=== PATIENT | male | born 1995 | race Caucasian/White ===

== ENCOUNTER 2023-02-26 07:28 | Emergency (ER) | payer SELFPAY ==
[~2023-02-26] VITALS: Ht 193 cm; Wt 108.9 kg
[2023-02-26 07:28] VITALS: BP 156/94; PULSE 83; RESP 18; TEMP 98.3; O2SAT 97
[2023-02-26] MEDS ORDERED: TORADOL ONE (07:37)
[2023-02-26] MEDS ORDERED: TORADOL IM ONE (08:00)
[2023-02-26 08:10] VITALS: BP 133/67; PULSE 69; RESP 18; TEMP 98.3; O2SAT 97
== END 2023-02-26 08:15 | disposition home or self-care (01) ==
LOC: ER 07:28
DX: M94.0 Chondrocostal junction syndrome [Tietze] (principal); R07.89 Other chest pain; F12.90 Cannabis use, unspecified, uncomplicated
CPT/HCPCS: 99283; 71045; 96372; 93005; J1885

== ENCOUNTER 2025-04-10 10:44 | Emergency (ER) | payer SELFPAY ==
[~2025-04-10] VITALS: Ht 193 cm; Wt 104.3 kg
[2025-04-10 11:00] VITALS: BP 143/87; PULSE 60; RESP 16; TEMP 98; O2SAT 98
[2025-04-10 11:07] VITALS: BP 129/79; PULSE 64; RESP 16; TEMP 98; O2SAT 99
[2025-04-10] MEDS ORDERED: TORADOL ONE (11:31)
[2025-04-10 11:34] LABS: BASOPHIL # 0.0 10^3/uL (0.0-0.1); BASOPHIL % 0.5 % (0.2-1.2); EOSINOPHIL # 0.2 10^3/uL (0.0-0.2); EOSINOPHIL % 3.1 % (0.0-5.0); HEMATOCRIT(ML) 45.5 % (37.0-53.0); IG % 0.00 % (0.00-0.50); LYMPHOCYTES # 2.14 10^3/uL1 (1.0-4.8); LYMPHOCYTES % 35.2 % (24.0-44.0); MEAN CORP HGB 29.7 pg (26-34); MEAN CORP HGB CONCENTRATION 33.2 g/dL (33-36.5); MEAN CORP VOLUME 89.6 fL (78-100); MONOCYTES # 0.5 10^3/uL (0.3-0.8); MONOCYTES % 7.4 % (5.0-12.0); NEUTROPHIL # 3.3 10^3/uL (1.8-7.7); NEUTROPHILS % 53.8 % (41.0-85.0); RED BLOOD CELL 5.08 10^6/uL (4.50-5.90); RED CELL DISTRIBUTION WIDTH 13.1 % (11.5-14.5); WHITE BLOOD CELL 6.1 10^3/uL (4.5-11.0)
[2025-04-10] MEDS: TORADOL IM STA (11:34)
[2025-04-10 11:52] LABS: ALANINE AMINOTRANSFERASE(ML) 34.0 U/L (12-78); ALBUMIN(ML) 4.3 g/dL (3.4-5.0); CREATININE SERUM 0.72 mg/dL (0.59-1.40); EST GFR, NON-AA 128.2 (>/=60); TROPONIN I HIGH SENSITIVITY 5.0 ng/L (0-75)
[2025-04-10] MEDS ORDERED: LIDOCAINE 1% VIAL ONE (12:08)
== END 2025-04-10 13:02 | disposition home or self-care (01) ==
LOC: ER 10:44
DX: S93.105A Unspecified dislocation of left toe(s), initial encounter (principal); F12.90 Cannabis use, unspecified, uncomplicated; W18.39XA Other fall on same level, initial encounter; Y93.89 Activity, other specified; Y92.89 Other specified places as the place of occurrence of the external cause; Y99.8 Other external cause status
CPT/HCPCS: 99285; 28660; 70450; 73630; 80053; 85025; 36415; 84484; 96372; 93005; 73660; J1885; J2003